=== PATIENT | male | born 1955 | race Caucasian/White ===

== ENCOUNTER 2021-06-23 18:50 | Emergency (ER) | payer BC ==
[2021-06-23 18:59] VITALS: BP 136/80; PULSE 72; TEMP 97.8; BMI 24.9
[2021-06-23 19:46] LABS: BASO % 0.8 % (0-2.0); EOS % 1.6 % (0-4.5); HEMATOCRIT 42.3 % (35.4-49); HEMOGLOBIN 14.4 GM/dL (11.7-16.9); LYMPH % 28.5 % (8-40); MCH 30.7 pg (25.7-33.7); MCHC 34.1 g/dl (32.0-35.9); MEAN CELL VOLUME 90.2 fl (80-96); MEAN PLT VOLUME 8.7 fl (7.5-11.1); MONO % 9.3 % (3.8-10.2); NEUT % 59.8 % (42.8-82.8); PLATELET COUNT 298 10^3/uL (134-434); RBC 4.69 M/mm3 (4.00-5.60); RDW 13.8 % (11.9-15.9); WHITE BLOOD COUNT 6.4 K/mm3 (4.0-10.0)
[2021-06-23 19:54] LABS: INR 1.41 (0.83-1.09); PROTHROMBIN TIME (PATIENT) 16.3 SEC (9.7-13.0)
[2021-06-23 19:56] LABS: ACTIVATED PTT 43.8 SECONDS (25.2-36.5)
[2021-06-23 19:58] LABS: ALBUMIN 4.1 g/dl (3.4-5.0); BLOOD UREA NITROGEN 21.3 mg/dL (7-18); CALCIUM 9.1 mg/dL (8.5-10.1)
[2021-06-23 20:03] LABS: BILIRUBIN,TOTAL 0.8 mg/dL (0.2-1); TOT PROT 7.1 g/dl (6.4-8.2)
[2021-06-23 20:06] LABS: N-TERMINAL BNP 47.2 pg/ml (5-125)
[2021-06-24 20:12] LABS: SARS-CoV-2 NAA Not Detected (Not Detected)
== END 2021-06-23 22:43 | disposition home or self-care (01) ==
LOC: JER 18:50
DX: I26.99 Other pulmonary embolism without acute cor pulmonale (principal); I82.402 Acute embolism and thrombosis of unspecified deep veins of left lower extremity; M87.052 Idiopathic aseptic necrosis of left femur
CPT/HCPCS: 36415; 80053; 83880; 84484; 85025; 85610; 85730; 93005; 93010; 99284-25; C9803-CS; U0003; U0005